=== PATIENT | male | born 1950 | race Caucasian/White ===

== ENCOUNTER → 2016-08-20 | Day surgery (SDC) | payer MEDICARE ==
[~2016-08-20] MED LIST: ACID CONTROL150 M1 PO; ALLOPURINOL300 MG PO; AUGMENTIN875 MG PO; FLEXERIL10 MG PO; HYDROCODON-ACE1 EAC7 PO; NITROSTAT0.4 MG SL; PRILOSEC
--- NOTE | ~2016-08-20 | OR ---
Unit #: [id number] #: [id number] Patient: MERLENE AGUIRRE [id number] [address] [place], [place] [address] [id number] O MR#: [id number] NAME: MERLENE AGUIRRE. ROOM: Date of Procedure: 08/20/2016 Admission Date: 08/20/2016 Surgeon: Landry Walters M.D. : 1950 Attending Physician: Landry Walters M.D. Primary Care Physician: Mehdi Melgar M.D. 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 PROCEDURES PERFORMED Upper gastrointestinal endoscopy and biopsy. POSTOPERATIVE DIAGNOSES The examination appeared completely normal. In fact, there was no hiatus hernia nor any evidence of Martin esophagus. There was a small tongues of columnar mucosa, which was extensively biopsied. It is noteworthy that the patient's previous endoscopic examination mentioned is having short segment of Martin esophagus. This was not confirmed by the histology. Reassurance therefore in order and this was offered in plenty. The patient is not in any further examination unless the biopsies showed definite incomplete intestinal metaplasia of Martin. SEDATION USED MAC. DESCRIPTION OF PROCEDURE Following detailed explanation of the potential risks and complications of an upper endoscopy, namely perforation, bleeding, and complications related to sedation, the patient was brought to GI lab and laid in the left lateral decubitus position. Lubricated tip of the Olympus video upper endoscope was passed through the bite block into the proximal esophagus under direct vision. The entire esophageal mucosa was examined. The patient was noted to have normal GE junction. There was a small tongues of columnar mucosa on one side, which was fairly small, certainly less than a 1 cm. The scope was then advanced into the gastric cavity and the latter was insufflated. Mucosa of the fundus, body, and antrum examined and appeared unremarkable. Pylorus was intubated with visualization of normal duodenal bulb and second and third part of the duodenum. Upon withdrawal and retroflexion, incisura, cardia, and greater curve examined and no additional findings noted. The scope was then withdrawn in the distal esophagus. Biopsies obtained from the squamocolumnar junction in the distal esophagus and sent for histology. The entire esophageal mucosa was examined all the way up to pharynx. No additional findings noted. The patient tolerated the procedure without any postprocedure complications. Dictated by... Unit #: [id number] #: [id number] Patient: MERLENE AGUIRRE M.D. AK/jose TD: 08/21/2016 07:29 JOB #: [id number] OPERATIVE REPORT Page 1 of 1 X Landry Walters MD PROCEDURE OPERATIVE NOTE
== END | disposition home or self-care (01) ==
LOC: COPS 09:38
DX: K20.9 Esophagitis, unspecified (principal); G89.29 Other chronic pain; M54.9 Dorsalgia, unspecified; J40 Bronchitis, not specified as acute or chronic; K21.9 Gastro-esophageal reflux disease without esophagitis; N40.0 Benign prostatic hyperplasia without lower urinary tract symptoms; Z88.5 Allergy status to narcotic agent; Z79.2 Long term (current) use of antibiotics; Z79.891 Long term (current) use of opiate analgesic; Z79.899 Other long term (current) drug therapy; Z90.49 Acquired absence of other specified parts of digestive tract; Z98.890 Other specified postprocedural states
CPT/HCPCS: 88305

== ENCOUNTER → 2016-12-31 | Outpatient (CLI) | payer MEDICARE ==
--- NOTE | ~2016-12-31 | TM ---
[id number] NAME: MERLENE AGUIRRE MR#: [id number] STUDY Regular treadmill report FINDINGS Resting heart rate is 69, resting blood pressure is 122/100 mmHg. Baseline EKG shows normal sinus rhythm. No significant ST T wave changes. PROCEDURE The patient was made to exercise on a standard Neto protocol. Total exercise time is 9 minutes, completing stage 3 of a standard Neto protocol. Test stopped because target heart rate achieved. No complaints of chest pain or extreme shortness of breath. Maximum heart rate obtained is 144, which is 93% of maximum predicted heart rate. Maximum blood pressure obtained is 165/[address] T wave changes suggestive of ischemia. No arrhythmias noted. CONCLUSION 1. Fair exercise tolerance. 2. There is no clinical, hemodynamic or EKG evidence of ischemia at moderate workload (93% of maximal predicted heart rate - 10.1 METs). 3. Baseline elevated diastolic blood pressure, with hypertensive blood pressure response with a peak blood pressure of 165/100 mmHg with exercise. 4. Normal regular treadmill stress test. Dictated by...
== END | disposition home or self-care (01) ==
LOC: CEKG 07:14
DX: R07.9 Chest pain, unspecified (principal); Z87.898 Personal history of other specified conditions
CPT/HCPCS: 93017